=== PATIENT | female | born 1985 | race Caucasian/White ===

== ENCOUNTER 2024-04-23 21:50 | Observation (INO) | payer OTHER, SELFPAY ==
[2024-04-23 21:03] VITALS: BMI 45.8
--- NOTE | 2024-04-23 21:51 | HP.PCM.HOS_ITS ---
[facility] - General General Date of Admission: 04/23/24 Date of Service: 04/23/24 Chief Complaint: abdominal pain. HPI Narrative HERLINDA MOMIN, is a 39 F who presents with abdominal pain. 39-year-old female with history of hypertension presents with acute onsets of abdominal pain that began on the first. Went to outside emergency room where she had fairly unremarkable workup and actually was feeling better. Went home and had an ultrasound performed as outpatient. Ultrasound she had of her right upper quadrant showed findings consistent with cholecystitis/cholelithiasis. At some point afterwards, she had even more severe abdominal pain and presented to the emergency room at the outside hospital and her liver transaminases were elevated with AST of 345, ALT of 504 and alk phos of 160. Patient received pip-tazo as well as pain medication. They reached out to Dr. Benson, gastroenterology, who would see the patient in consultation with plan for an ERCP. Patient has never had any abdominal pain like this before. Patient is currently feeling much better at this time though still does have some abdominal pain. [facility] Medical History Hypertension Home Medications ?Medication ?Instructions ?Recorded ?Last Taken ?Type cholecalciferol (vitamin D3) 125 125 mcg PO DAILY supplement 04/23/24 Unknown History mcg (5,000 unit) tablet (Vitamin D3) ciprofloxacin HCl 500 mg tablet 500 mg PO BID atb 04/23/24 Unknown History diltiazem HCl 120 mg 120 mg PO DAILY heart 04/23/24 Unknown History capsule,extended release 24 hr losartan 100 mg tablet 100 mg PO DAILY bp 04/23/24 Unknown History metronidazole 500 mg tablet 500 mg PO TID atb 04/23/24 Unknown History ondansetron 4 mg disintegrating 4 mg PO Q6H PRN PRN nausea and 04/23/24 Unknown History tablet vomiting oxycodone 5 mg tablet 5 mg PO TID PRN PRN pain 04/23/24 Unknown History pravastatin 20 mg tablet 20 mg PO QPM hld 04/23/24 Unknown History Allergy/AdvReac Type Severity Reaction Status Date / Time No Known Allergies Allergy Verified 04/23/24 21:16 Family History no significant family his Surgical History no surgical history Social History (Updated 04/23/24 @ 21:[address] Vineet Jean DO) Smoking Status: Never smoker alcohol intake: current alcohol intake frequency: holidays/special occasions only substance use type: does not use ROS ROS Narrative Patient had some nausea with this event. All review of systems were negative except as mentioned above in the history of present illness and the other review of systems. Vital Signs Vital Signs Vital Signs: Weight Weight: 117.435 kg Body Mass Index (BMI) 45.8 Physical Exam Const alert and no apparent distress General Appearance: cooperative HEENT normocephalic and head/scalp atraumatic Eyes Eyes Narrative: No icterus Neck no lymphadenopathy Neck Narrative: No thyromegaly Resp normal respiratory effort, no retractions, no use of accessory muscles and clear to auscultation bilaterally Cardio regular rate, regular rhythm, S1 normal heart sound and S2 normal heart sound GI normal to inspection, nondistended, normoactive bowel sounds and soft to palpation GI Narrative: Slight right upper quadrant abdominal pain. No rebound. Extremity normal to inspection Neuro Sensorium / Orientation: awake and alert Psych affect normal Results Lab / Micro Data Attestation: I reviewed the patient's lab results. Lab results narrative: Outside labs showed a white count of 7.9, hemoglobin 14.8, platelets 372. CMP: Sodium 138, potassium 3.9, creatinine 0.62, AST 345, ALT 504, alk phos 160. Urinalysis was unremarkable. Imaging Outside ultrasound that was performed before the second biliary colic showed findings consistent with cholecystitis/cholelithiasis. Common bile duct mildly dilated measuring 6.1 mm. Intraductal calculus not identified. Gravel present in the dependent aspect of the gallbladder. Assessment & Plan Assessment/Plan (1) Cholecystitis: PLAN: Acute cholecystitis Patient received pip-tazo at the outside hospital. Will have her on ceftriaxone 2 g daily plus 3 times daily dosing of metronidazole. Clear liquid diet for now. N.p.o. after midnight. Discussed with Dr. Benson and the plan is for an ERCP on the third. Discussed with Dr. Milton who will see the patient in consultation. Patient will need to have her gallbladder removed at some point. Is unclear at this point time that will be done during this hospitalization or as outpatient. IV fluids. Pain control. Antiemetics. (2) Dilated bile duct: PLAN: Likely due to a passed gallstone though was not visualized on the ultrasound. Plans for an ERCP on the third. (3) Transaminitis: PLAN: Likely secondary to transient choledocholithiasis. Monitor for now. PLAN: Plan Chronic conditions * Hypertension: Patient takes diltiazem for her blood pressure. I verified that with her. She states that she does not have any history of any arrhythmia. Will continue with that but also continue with her losartan. * Hyperlipidemia: Given the transaminitis, will hold off on her pravastatin. * Obesity class III: Complicates care and recovery. VTE prophylaxis with SCDs anticipating ERCP and possible cholecystectomy during this hospitalization. CODE STATUS: Addressed with the patient. Patient wishes to be full code. Charges/Coding Visit Charges Inpatient E&M: 01631 Init Hosp L3
[2024-04-23] MEDS: 0.9% Normal Saline (1000mL) 1,000 ML 125 ML IV (22:48)
[2024-04-23] MEDS: metroNIDAZOLE 500 MG/100 ML BAG 100 MG IV (23:13)
[2024-04-23] MEDS: Ceftriaxone 2 GM in 0.9% Normal Saline (50mL MB+) 50 ML IV (23:13)
[2024-04-24] VITALS (10 sets, daily range): BP systolic 117–150; BP diastolic 68–96; PULSE 65–91; RESP 14–18; TEMP 36.5–36.9; O2SAT 96–100; BMI 45.8
--- NOTE | 2024-04-24 04:01 | NURSING ---
Radiology called to notify this nurse that the abdominal ultrasound for this patient will not merge onto patient's chart. It is currently in a mismatched profile and the hard copy is still with radiology if a provider were needing to see it.
[2024-04-24 04:20] LABS: Internal QC Validated? YES +Cl - CLEAR BKGD; Pregnancy, Urine Negative Negative
[2024-04-24] MEDS: metroNIDAZOLE 500 MG/100 ML BAG 100 MG IV ×2 (05:17→13:22)
[2024-04-24] MEDS: Acetaminophen 325 MG Tablet 650 MG PO ×2 (05:19→17:25)
[2024-04-24 05:35] LABS: Absolute Lymphocyte Count 1.73 X10^3/uL (0.83-4.51); Absolute Neutrophil Count 3.9 X10^3/uL (2.0-7.7); Basophil# 0.06 X10^3/uL; Eosinophil# 0.12 X10^3/uL; Eosinophils% 1.9 % (0-5); Hematocrit 34.6 % (37-47); Hemoglobin 11.5 g/dL (12.0-15.0); Lymphocyte # 1.73 X10^3/ul (0.83-4.51); Lymphocyte % 27.5 % (19-41); Mean Corp Hgb Conc 33.2 g/dL (32-36); Mean Corpuscular Hgb 29.6 pg (27.0-32.0); Mean Corpuscular Volume 89.2 fL (81-99); Monocyte# 0.47 X10^3/uL; Monocyte% 7.5 % (0-10); NRBC Flagged by Analyzer 0 % (0-5); Neutrophil # 3.89 X10^3/uL (2.7-7.7); Neutrophil % 61.6 % (47-70); Platelet Count 278 K/mm3 (150-450); RBC Distribution Width CV 13.3 % (11.6-14.6); RBC Distribution Width SD 43.2 fl (35.1-43.9); Red Blood Count 3.88 M/mm3 (4.2-5.4); White Blood Count 6.3 K/mm3 (4.4-11.0)
[2024-04-24 05:56] LABS: AST(SGOT) 231 U/L (15-37); Alanine Aminotransfer ALT/SGPT 404 U/L (13-56); Albumin, Serum 3.1 g/dL (3.2-5.0); Alkaline Phosphatase 165 U/L (45-117); Anion Gap 8 (5-15); BUN 9 mg/dL (7-18); BUN/Creat Ratio 19.7 RATIO (10-20); Calcium,Total 8.2 mg/dL (8.5-10.1); Chloride 108 mmol/L (98-107); Creatinine, Serum 0.46 mg/dL (0.55-1.02); EST Glomerular Filtration Rate 160 mL/min (>60); Est Glom Filt Rate - Afr Amer 193 mL/min (>60); Estimated Creatinine Clearance 199.23 ml/min; Globulin 3.1 g/dL (2.2-4.2); Glucose 87 mg/dL (74-106); Potassium 3.7 mmol/L (3.5-5.1); Protein, Total 6.2 g/dL (6.4-8.2); Sodium Level 139 mmol/L (136-145)
--- NOTE | 2024-04-24 06:00 | EKG12_ITS ---
Test Reason : PRE-OP Blood Pressure : / mmHG Vent. Rate : 074 BPM Atrial Rate : 074 BPM P-R Int : 182 ms QRS Dur : 098 ms QT Int : 412 ms P-R-T Axes : 051 017 057 degrees QTc Int : 457 ms Normal sinus rhythm Normal ECG No previous ECGs available Confirmed by Sher Gan ([id number]), proposal editor [facility] CANDELARIO ([id number]) on 04/27/2024 2:12:56 PM Referred By: YINA Confirmed By:Sher Gan
--- NOTE | 2024-04-24 06:54 | PCM.PN.HOSP ---
Reason for Visit Reason for Visit: Diagnoses Cholecystitis, unspecified (04/23/24) Other specified diseases of biliary tract (04/23/24) Elevation of levels of liver transaminase levels (04/23/24) Subjective Subjective Patient is a 39-year-old lady admitted with abdominal pain Objective Data Objective Data Vital Signs: Vital Signs Temp Pulse Resp BP Pulse Ox O2 Del Method 98.1 F 69 14 132/68 H 96 Room Air 04/24/24 02:57 04/24/24 02:57 04/24/24 02:57 04/24/24 02:57 04/24/24 02:57 04/24/24 02:57 Oxygen Delivery Method Room Air Weight: 117.435 kg Body Mass Index (BMI) 45.8 Intake & Output: Intake and Output for Last 24 Hours 04/22/24 04/23/24 04/24/24 23:59 23:59 23:59 Intake Total 168.75 / 168.75 200 / 200 Output Total 0 / 0 Balance 168.75 / 168.75 200 / 200 Lab / Micro Data 04/24/24 05:12 04/24/24 05:12 Labs: Laboratory Results - last 24 hr 04/24/24 03:06: Urine Test Negative 04/24/24 05:12: WBC 6.3, RBC 3.88 L, Hgb 11.5 L, Hct 34.6 L, MCV 89.2, MCH 29.6, MCHC 33.2, RDW Std Deviation 43.2, RDW Coeff of Stevo 13.3, Plt Count 278, MPV 11.0, Immature Gran % (Auto) 0.500, Neut % (Auto) 61.6, Lymph % (Auto) 27.5, [place] % (Auto) 7.5, Eos % (Auto) 1.9, Baso % (Auto) 1.0, Absolute Neuts (auto) 3.9, Absolute Lymphs (auto) 1.73, Nucleated RBC % 0, Sodium 139, Potassium 3.7, Chloride 108 H, Carbon Dioxide 23.0, Anion Gap 8, BUN 9, Creatinine 0.46 L, Estim Creat Clear Calc 199.23, Est GFR (MDRD) Af Amer 193, Est GFR (MDRD) Non-Af 160, BUN/Creatinine Ratio 19.7, Glucose 87, Calcium 8.2 L, Total Bilirubin 2.70 H, AST 231 H, ALT 404 H, Alkaline Phosphatase 165 H, Total Protein 6.2 L, Albumin 3.1 L, Globulin 3.1, Albumin/Globulin Ratio 1.0 Physical Exam Narrative GENERAL: cooperative HEENT: Atraumatic; normocephalic EYES; Anicteric, Normal Conjunctiva NECK; supple, normal thyroid, RESPIRATORY: Diminished to auscultation CARDIOVASCULAR: Regular S1 S2, GI: soft, normoactive bowel sounds, RUQ tenderness : No Renal angle tenderness; EXTREMITIES: No edema, no clubbing, MUSCULOSKELETAL: no muscle wasting NEURO: Awake; no lateralizing signs. SKIN: No Rash PSYCH; Flat affect Assessment & Plan Assessment/Plan (1) Cholecystitis: (2) Dilated bile duct: (3) Transaminitis: PLAN: Plan Patient is a 39-year-old lady admitted with abdominal pain 1. Acute cholecystitis ? Patient admitted to regular nursing floor treatment initiated with ceftriaxone and metronidazole with consultation placed to general surgery and GI 2. Dilated bile duct ? GI is on board plan is for ERCP 3. Hypertension - Blood pressure controlled, home medications continued with dose adjustment as needed 4. Dyslipidemia ? Patient is on provide started which is currently being held given his elevated liver enzymes 5. Class III obesity with BMI of 45.9 ? Weight loss advised 6. DVT prophylaxis - On enoxaparin Time spent in the patient's overall evaluation,decision-making process, review of diagnostic data, adjustment of management, discussion with other providers, nursing nursing and ancillary staff involved in patient's care documentation, 36 Minutes Charges/Coding Visit Charges Inpatient E&M: 75726 Subs Hosp L2
[2024-04-24] MEDS: dilTIAZem CD 120 MG Capsule PO (08:20)
--- NOTE | 2024-04-24 08:47 | CON.PCM.SX_ITS ---
Assessment & Plan Assessment/Plan (1) Cholelithiasis: (2) Elevated LFTs: PLAN: Plan Patient will undergo an ERCP today with Dr. Benson. Would likely plan for laparoscopic cholecystectomy on Friday as patient's pain is well-controlled currently. Would recommend only clear liquids after ERCP to avoid fatty foods. Reviewed the anatomy with the patient and discussed the procedure: laparoscopic cholecystectomy with possible cholangiograms, possible open. Review risks including but not limited to bleeding, infection, hernia, bile leak, retained gallstones requiring another procedure ERCP- Endoscopic Retrograde Cholangiopancreatography, injury to another organ (bile ducts, common bile duct, small bowel, etc.) and conversion to an open procedure. All questions were answered. France Milton M.D. Pager: [phone] [facility] [address] [place] [address], [address] [place] [address] Office: [phone] HPI Consult Data Date of Consult: 04/24/24 HPI Narrative Reason for Consultation: Cholelithiasis, cholecystitis HPI Narrative: HERLINDA MOMIN, is a 39 F who admitted due to elevated LFTs and cholelithiasis from [facility]. Patient states her pain started on after eating some sloppy Torsten's that did improve until Friday she had her ultrasound but then had a salad with salad dressing patient went to see her PCP and her pain got worse and she went to the ER. Currently patient denies much pain states it may be is a 1 out of 10 currently. Patient denies any nausea or vomiting currently. Patient's LFTs have trended up a little bit plan for an ERCP today with Dr. Benson. Reviewed the CT images however do not have the images from the ultrasound as a send images from 2007 --asked for them to be resent. [facility] Medical History (Updated 04/24/24 @ 08:[address] France Milton MD) Hypertension Home Medications ?Medication ?Instructions ?Recorded ?Last Taken ?Type cholecalciferol (vitamin D3) 125 125 mcg PO DAILY supplement 04/23/24 Unknown History mcg (5,000 unit) tablet (Vitamin D3) ciprofloxacin HCl 500 mg tablet 500 mg PO BID atb 04/23/24 Unknown History diltiazem HCl 120 mg 120 mg PO DAILY heart 04/23/24 Unknown History capsule,extended release 24 hr losartan 100 mg tablet 100 mg PO DAILY bp 04/23/24 Unknown History metronidazole 500 mg tablet 500 mg PO TID atb 04/23/24 Unknown History ondansetron 4 mg disintegrating 4 mg PO Q6H PRN PRN nausea and 04/23/24 Unknown History tablet vomiting oxycodone 5 mg tablet 5 mg PO TID PRN PRN pain 04/23/24 Unknown History pravastatin 20 mg tablet 20 mg PO QPM hld 04/23/24 Unknown History Allergy/AdvReac Type Severity Reaction Status Date / Time No Known Allergies Allergy Verified 04/23/24 21:16 Family History no significant family his Surgical History (Updated 04/24/24 @ 08:[address] France Milton MD) H/O: Surgical History no surgical history Social History (Updated 04/23/24 @ 21:[address] Vineet Jean DO) Smoking Status: Never smoker alcohol intake: current alcohol intake frequency: holidays/special occasions only substance use type: does not use ROS Constitutional Constitutional: Denies fever(s) Eyes Eyes: Denies loss of central vision ENT HEENT: Denies dysphagia Cardiovascular Cardiovascular: Denies chest pain Respiratory/Chest Respiratory/Chest: Denies productive cough Gastrointestinal Gastrointestinal: Reports abdominal pain; Denies vomiting Genitourinary Genitourinary: Denies dysuria Musculoskeletal Musculoskeletal: Denies joint swelling Integumentary Integumentary: Denies jaundice Neurologic Neurologic: Denies focal weakness Psychiatric Psychiatric: Denies anxiety or depression Endocrine Endocrinology: Denies palpitations Hematologic/Lymphatic Hematologic/Lymphatic: Denies easy bleeding Physical Exam Const alert, oriented x3 and no apparent distress HEENT normocephalic and head/scalp atraumatic Resp normal respiratory effort Cardio regular rate GI soft to palpation; Negative for non-distended Palpation: tender epigastric and RUQ (mild); Negative for guarding Extremity no clubbing, cyanosis or edema Skin no rashes or lesions noted Neuro CN's II-XII intact bilaterally Psych mental status grossly normal Lab / Micro Data 04/24/24 05:12 04/24/24 05:12 Labs: Laboratory Results - last 24 hr 04/24/24 03:06: Urine Test Negative 04/24/24 05:12: WBC 6.3, RBC 3.88 L, Hgb 11.5 L, Hct 34.6 L, MCV 89.2, MCH 29.6, MCHC 33.2, RDW Std Deviation 43.2, RDW Coeff of Stevo 13.3, Plt Count 278, MPV 11.0, Immature Gran % (Auto) 0.500, Neut % (Auto) 61.6, Lymph % (Auto) 27.5, [place] % (Auto) 7.5, Eos % (Auto) 1.9, Baso % (Auto) 1.0, Absolute Neuts (auto) 3.9, Absolute Lymphs (auto) 1.73, Nucleated RBC % 0, Sodium 139, Potassium 3.7, Chloride 108 H, Carbon Dioxide 23.0, Anion Gap 8, BUN 9, Creatinine 0.46 L, Estim Creat Clear Calc 199.23, Est GFR (MDRD) Af Amer 193, Est GFR (MDRD) Non-Af 160, BUN/Creatinine Ratio 19.7, Glucose 87, Calcium 8.2 L, Total Bilirubin 2.70 H, AST 231 H, ALT 404 H, Alkaline Phosphatase 165 H, Total Protein 6.2 L, A lbumin 3.1 L, Globulin 3.1, Albumin/Globulin Ratio 1.0 Charges/Coding Visit Charges Inpatient E&M: 16491 Init Hosp L3
[2024-04-24] MEDS: 0.9% Normal Saline (1000mL) 1,000 ML 125 ML IV ×2 (10:37→14:46)
--- NOTE | 2024-04-24 11:25 | CON.PCM.GI_ITS ---
HPI Consult Data Date of Consult: 04/24/24 HPI Narrative Reason for Consultation: Choledocholithiasis HPI Narrative: HERLINDA MOMIN, is a 39-year-old female with history of hypertension presented to the [facility] with acute onsets of abdominal pain. It had been going on for about 3 days. Initially she went to outside emergency room where she had fairly unremarkable workup and actually was feeling better. She then went home and had an ultrasound performed as outpatient. Ultrasound she had of her right upper quadrant showed findings consistent with cholecystitis/cholelithiasis. Later that evening she developed severe abdominal pain and presented to the emergency room at the outside hospital and her liver transaminases were elevated with AST of 345, ALT of 504 and alk phos of 160. She was given pip-tazo as well as pain medication. I was called for a transfer to our institution for ERCP. Currently her LFTs are still increasing and now she is visibly jaundiced. She does have some right upper quadrant pain but is controlled with IV medicines. [facility] Medical History (Updated 04/24/24 @ 08:[address] France Milton MD) Hypertension Home Medications ?Medication ?Instructions ?Recorded ?Last Taken ?Type cholecalciferol (vitamin D3) 125 125 mcg PO DAILY supplement 04/23/24 Unknown History mcg (5,000 unit) tablet (Vitamin D3) ciprofloxacin HCl 500 mg tablet 500 mg PO BID atb 04/23/24 Unknown History diltiazem HCl 120 mg 120 mg PO DAILY heart 04/23/24 Unknown History capsule,extended release 24 hr losartan 100 mg tablet 100 mg PO DAILY bp 04/23/24 Unknown History metronidazole 500 mg tablet 500 mg PO TID atb 04/23/24 Unknown History ondansetron 4 mg disintegrating 4 mg PO Q6H PRN PRN nausea and 04/23/24 Unknown History tablet vomiting oxycodone 5 mg tablet 5 mg PO TID PRN PRN pain 04/23/24 Unknown History pravastatin 20 mg tablet 20 mg PO QPM hld 04/23/24 Unknown History Allergy/AdvReac Type Severity Reaction Status Date / Time No Known Allergies Allergy Verified 04/23/24 21:16 Family History no significant family his Surgical History (Updated 04/24/24 @ 08:[address] France Milton MD) H/O: Surgical History no surgical history Social History (Updated 04/23/24 @ 21:[address] Vineet Jean, DO) Smoking Status: Never smoker alcohol intake: current alcohol intake frequency: holidays/special occasions only substance use type: does not use ROS Constitutional Constitutional: Denies fever(s) Eyes Eyes: Denies loss of central vision ENT HEENT: Denies dysphagia Cardiovascular Cardiovascular: Denies chest pain Respiratory/Chest Respiratory/Chest: Denies productive cough Gastrointestinal Gastrointestinal: Reports abdominal pain; Denies vomiting Genitourinary Genitourinary: Denies dysuria Musculoskeletal Musculoskeletal: Denies joint swelling Integumentary Integumentary: Denies jaundice Neurologic Neurologic: Denies focal weakness Psychiatric Psychiatric: Denies anxiety or depression Endocrine Endocrinology: Denies palpitations Hematologic/Lymphatic Hematologic/Lymphatic: Denies easy bleeding Physical Exam Const alert, oriented x3 and no apparent distress HEENT normocephalic and head/scalp atraumatic Resp normal respiratory effort Cardio regular rate GI soft to palpation; Negative for non-distended Palpation: tender epigastric and RUQ (mild); Negative for guarding Extremity no clubbing, cyanosis or edema Skin no rashes or lesions noted Neuro CN's II-XII intact bilaterally Psych mental status grossly normal Lab / Micro Data 04/24/24 05:12 04/24/24 05:12 Labs: Laboratory Results - last 24 hr 04/24/24 03:06: Urine Test Negative 04/24/24 05:12: WBC 6.3, RBC 3.88 L, Hgb 11.5 L, Hct 34.6 L, MCV 89.2, MCH 29.6, MCHC 33.2, RDW Std Deviation 43.2, RDW Coeff of Stevo 13.3, Plt Count 278, MPV 11.0, Immature Gran % (Auto) 0.500, Neut % (Auto) 61.6, Lymph % (Auto) 27.5, [place] % (Auto) 7.5, Eos % (Auto) 1.9, Baso % (Auto) 1.0, Absolute Neuts (auto) 3.9, Absolute Lymphs (auto) 1.73, Nucleated RBC % 0, Sodium 139, Potassium 3.7, Chloride 108 H, Carbon Dioxide 23.0, Anion Gap 8, BUN 9, Creatinine 0.46 L, Estim Creat Clear Calc 199.23, Est GFR (MDRD) Af Amer 193, Est GFR (MDRD) Non-Af 160, BUN/Creatinine Ratio 19.7, Glucose 87, Calcium 8.2 L, Total Bilirubin 2.70 H, AST 231 H, ALT 404 H, Alkaline Phosphatase 165 H, Total Protein 6.2 L, A lbumin 3.1 L, Globulin 3.1, Albumin/Globulin Ratio 1.0 Assessment & Plan Assessment/Plan (1) Cholecystitis: PLAN: 39-year-old with acute right upper quadrant pain and discovered to have acute cholecystitis with common bile duct obstruction Patient received pip-tazo at the outside hospital. She was started on ceftriaxone 2 g daily plus 3 times daily dosing of metronidazole. Continue n.p.o. the plan is for ERCP. She will be evaluated by surgery. (2) Dilated bile duct: PLAN: Likely secondary to underlying choledocholithiasis since her LFTs are increasing as she still has pain. (3) Transaminitis: PLAN: Secondary to biliary obstruction.. Charges/Coding Visit Charges Inpatient E&M: 74596 Init Hosp L3
--- NOTE | 2024-04-24 11:27 | RAD_ITS ---
EXAM: FL FLUOROSCOPY < 1 HOUR CLINICAL INDICATION: ABD PAIN TECHNIQUE: Fluoroscopic images performed in multiple projections. Fluoroscopic guidance was provided by a physician. Fluoroscopic dose is 75.28mGy and fluoroscopic time is 1 minute 33 seconds. COMPARISON: No relevant prior studies available. FINDINGS AND RAD/ERCP Biliary/Pancreas IMPRESSION: 5 fluoroscopic images for ERCP are submitted to the medical record. Refer to the operative notes for complete details. Electronically Signed: Tomasz Watkins DO at 16:30 EDT ,
--- NOTE | 2024-04-24 11:48 | PCM.PRE.AN2 ---
ASA Classification* ASA Classification ASA Classification: 3 and E Assessment & Plan Anesthesia* Anesthesia Assessment Anesthesia Assessment: Discussed sedation and/or anesthesia options, risks, benefits, and alternatives with patient/parents/legal guardian/POA. Questions invited. The patient/parents/legal guardian/POA seems to understand and agrees to proceed with anesthesia plan. Reviewed the physical assessment, medical history, allergy history and patient home medications list prior to surgery/procedure/anesthetic and documented any changes. Performed airway and anesthesia risk assessments. Anesthesia Type Anesthesia Type: General (see written pre anesthesia record for full assessment) Anesthesia Focused Assessment* Temperature: 98.0 F Pulse Rate: 73 Blood Pressure: 145/96 Respiratory Rate: 18 Pulse Ox: 99 Airway Assessment Mouth opens: >3 cm Mallampati Score: II Focused Labs Anesthesia Preop lab: CBC WBC 6.3 K/mm3 (4.4-11.0) 04/24/24 05:12 RBC 3.88 M/mm3 (4.2-5.4) L 04/24/24 05:12 Hgb 11.5 g/dL (12.0-15.0) L 04/24/24 05:12 Hct 34.6 % (37-47) L 04/24/24 05:12 Plt Count 278 K/mm3 (150-450) 04/24/24 05:12 CHEMISTRY Potassium 3.7 mmol/L (3.5-5.1) 04/24/24 05:12 Sodium 139 mmol/L (136-145) 04/24/24 05:12 BUN 9 mg/dL (7-18) 04/24/24 05:12 Creatinine 0.46 mg/dL (0.55-1.02) L 04/24/24 05:12 Glucose 87 mg/dL (74-106) 04/24/24 05:12 COAG Urine Test Negative Negative 04/24/24 03:06 Pre-Assessment Diagnosis/Proposed Procedure Planned Operative Procedure(s): ercp Anesthesia History Anesthesia History - mica laminating machine feeder: Anesthesia History - mica laminating machine feeder Hx Hospitalization Any Problems With Anesthesia No 04/23/24 21:09 Cholinesterase deficiency No 04/23/24 21:09 You/Your Family Experience No 04/23/24 21:09 fever (hyperthermia) with Relationship Recent Exposure to Contagious No 04/23/24 21:09 Disease Does patient have nerve No 04/23/24 21:09 stimulator Patient instructed to have No 04/23/24 21:09 device shut off --Does patient have Pacemaker No 04/24/24 11:06 or ICD? When Was Last Pacemaker Check QUESTION #4 FULL TEXT: You/Your Family Experience fever (hyperthermia) with Anesthesia Last Oral Intake Last Oral intake: Last Oral Intake NPO since 00:00 04/24/24 11:06 Meds taken in AM with sips of Yes 04/24/24 11:06 water? Meds patient instructed to cardizem @ approx 0800 04/24/24 11:06 take am of surgery other b/p meds held-see mar PONV PONV - mica laminating machine feeder: PONV - mica laminating machine feeder Female HX of Motion Sickness HX of N/V After Surgery Non-Smoker Duration of Surgery greater than 60 minutes Number of Risk Factors PONV Score Height & Weight Height & Weight: Anesthesia: Height & Weight Height 5 ft 2.99 in 04/24/24 11:06 Weight: 117.43 kg 04/24/24 11:06 Body Mass Index (BMI) 45.8 04/24/24 11:06 Respiratory Assessment Respiratory Assessment - mica laminating machine feeder: Respiratory Tract Infection Hx - mica laminating machine feeder Hx Respiratory Tract Infection No 04/23/24 21:09 STOP Sleep Apnea STOP Sleep Apnea - mica laminating machine feeder: STOP Sleep Apnea - mica laminating machine feeder Hx Hypertension Yes 04/23/24 21:03 Hx Sleep Apnea No 04/23/24 21:03 CPAP BIPAP Do you snore loudly (louder No 04/23/24 21:03 than talking or can be heard Do you often feel tired/ No 04/23/24 21:03 fatigued/ sleepy during daytime? Has anyone observed you stop No 04/23/24 21:03 breathing during sleep? STOP Results Negative 04/23/24 21:03 QUESTION #5 FULL TEXT : Do you snore loudly (louder than talking or can be heard through closed doors)? 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 Specify any problems Hx of Preganancy in last 3 No 04/23/24 21:03 Months Nurse Filling Out Transfusion VWEEMAN 04/23/24 21:03 & Questions: Date: 04/23/24 04/23/24 21:03 Time: 21:09 04/23/24 21:03 Patient unable to answer at this time (ie. confused, unrespo /Reproduction History /Reproductive History - mica laminating machine feeder: /Reproductive Hx- mica laminating machine feeder Hx Now No 04/23/24 21:09 Gestational Age (in weeks): EDC: Hx Hx Para Hx Section SAB No 04/23/24 21:09 Active Medications Active Medications: Current Medications Generic Name Dose Route Start Last Admin Trade Name Freq PRN Reason Stop Dose Admin Acetaminophen 650 mg 04/23/24 22:30 04/24/24 05:19 Acetaminophen 325 Mg Tablet PO 650 mg Q6H PRN PRN Administration Pain 1-10 Or Fever >100.7 Diltiazem HCl 120 mg 04/24/24 10:00 04/24/24 08:20 Diltiazem Cd 120 Mg Capsule PO 120 mg DAILY JULIAN Administration Protocol Heparin Sodium (Porcine) 5,000 unit 04/24/24 10:00 04/24/24 10:39 Heparin Injection (Vial) 5,000 Unit/Ml Vial SC Not Given Q12 JULIAN Sodium Chloride 250 mls @ 15 mls/hr 04/23/24 21:03 IV .[id number] PRN Additional IVPB Infusion Sodium Chloride 250 mls @ 15 mls/hr 04/23/24 21:03 IV .[id number] PRN Saline Flush Sodium Chloride 1,000 mls @ 125 mls/hr 04/23/24 22:30 04/24/24 10:37 IV 125 mls/hr .Q8H JULIAN Administration Ceftriaxone Sodium 2 gm/ 50 mls @ 100 mls/hr 04/23/24 22:30 04/23/24 23:43 Sodium Chloride IV Infused 2200 JULIAN Infusion Metronidazole 500 mg in 100 mls @ 100 mls/hr 04/23/24 22:30 04/24/24 06:36 Flagyl IV Infused Q8 JULIAN Infusion Losartan Potassium 100 mg 04/24/24 10:00 Losartan Potassium 100 Mg Tablet PO DAILY [facility] Protocol Morphine Sulfate 2 - 4 mg 04/23/24 22:30 Morphine 2 Mg/Ml Syringe IV Q3H PRN PRN Pain Score 6-10 Morphine Sulfate 2 - 4 mg 04/23/24 22:48 Morphine 4 Mg/Ml Syringe IV Q3H PRN PRN Pain Score 6-10 Ondansetron HCl 4 mg 04/23/24 22:30 Ondansetron 4 Mg/2 Ml Vial IV Q8H PRN PRN NAUSEA/VOMITING Oxycodone HCl 5 mg 04/23/24 22:30 Oxycodone 5 Mg Tablet PO Q4H PRN PRN Pain Score 4-10 Prochlorperazine Edisylate 5 mg 04/23/24 22:30 Prochlorperazine 10 Mg/2 Ml Vial IV Q4H PRN PRN Breakthrough nausea/vomiting Sodium Chloride 10 - 40 ml 04/23/24 21:03 0.9% Saline Lock 10 Ml Syringe IV UD PRN SALINE FLUSH PFSH Medical History Hypertension Home Medications ?Medication ?Instructions ?Recorded ?Last Taken ?Type cholecalciferol (vitamin D3) 125 125 mcg PO DAILY supplement 04/23/24 Unknown History mcg (5,000 unit) tablet (Vitamin D3) ciprofloxacin HCl 500 mg tablet 500 mg PO BID atb 04/23/24 Unknown History diltiazem HCl 120 mg 120 mg PO DAILY heart 04/23/24 Unknown History capsule,extended release 24 hr losartan 100 mg tablet 100 mg PO DAILY bp 04/23/24 Unknown History metronidazole 500 mg tablet 500 mg PO TID atb 04/23/24 Unknown History ondansetron 4 mg disintegrating 4 mg PO Q6H PRN PRN nausea and 04/23/24 Unknown History tablet vomiting oxycodone 5 mg tablet 5 mg PO TID PRN PRN pain 04/23/24 Unknown History pravastatin 20 mg tablet 20 mg PO QPM hld 04/23/24 Unknown History Allergy/AdvReac Type Severity Reaction Status Date / Time No Known Allergies Allergy Verified 04/23/24 21:16 Family History no significant family his Surgical History H/O: Surgical History no surgical history Social History Smoking Status: Never smoker alcohol intake: current alcohol intake frequency: holidays/special occasions only substance use type: does not use Review of Systems (Anesthesia) ROS Narrative System reviewed and no additional complaints, except as documented.
--- NOTE | 2024-04-24 12:06 | NURSING ---
cliff sent w/pt to [facility]
--- NOTE | 2024-04-24 13:47 | OP.CCLET_ITS ---
04/24/2024 Lukasz Webber Re : ERCP procedure for Alexandra Brothers Akbar This procedure was performed on Wednesday, April 24, 2024. My impressions and recommendations are as follows: Impressions : - The entire main bile duct was dilated, with a stone causing an obstruction. - Choledocholithiasis was found. Complete removal was accomplished by biliary sphincterotomy and balloon extraction. - A pancreatic sphincterotomy was performed. - The ventral pancreatic duct was swept and nothing was found. - A biliary sphincterotomy was performed. - The biliary tree was swept. - The lower third of the main bile duct was successfully dilated. - One temporary stent was placed into the common bile duct. Recommendations : LR wide open x 3 liters, then 200ml/hr. Continue antibiotics, Full loiquid diet and advance as tolerated to low fat diet My findings are described in the full procedure note, which is enclosed. If I can be of further assistance, please feel free to contact me at . Sincerely, Wellington Benson, 04/24/2024 1:46:01 PM This report has been signed electronically.
--- NOTE | 2024-04-24 13:47 | OP.ERCP_ITS ---
Patient Name: Alexandra Perkins Procedure Date: 04/24/2024 12:40 PM Date of : 1985 Age: 39 Procedure: ERCP Indications: Bile duct stone(s), Jaundice, Elevated liver enzymes Providers: Wellington Benson DO Medicines: Monitored Anesthesia Care Patient Profile: This is a 39 year old female. Refer to note in patient chart for documentation of history and physical. Patient has symptoms of acute right upper quadrant abdominal pain and acute jaundice. This patient has no history of previous ERCP. This patient has no history of surgical alteration of the upper digestive tract anatomy. Complications: No immediate complications. Procedure: Pre-Anesthesia Assessment: - Prior to the procedure, a History and Physical was performed, and patient medications and allergies were reviewed. The patient is competent. The risks and benefits of the procedure and the sedation options and risks were discussed with the patient. All questions were answered and informed consent was obtained. Patient identification and proposed procedure were verified by the physician in the pre-procedure area. Mental Status Examination: alert and oriented. Airway Examination: normal oropharyngeal airway and neck mobility. Respiratory Examination: clear to auscultation. CV Examination: normal. Prophylactic Antibiotics: The patient does not require prophylactic antibiotics. Prior Anticoagulants: The patient has taken no anticoagulant or antiplatelet agents except for NSAID medication. ASA Grade Assessment: II - A patient with mild systemic disease. After reviewing the risks and benefits, the patient was deemed in satisfactory condition to undergo the procedure. The anesthesia plan was to use general anesthesia. Immediately prior to administration of medications, the patient was re-assessed for adequacy to receive sedatives. The heart rate, respiratory rate, oxygen saturations, blood pressure, adequacy of pulmonary ventilation, and response to care were monitored throughout the procedure. The physical status of the patient was re-assessed after the procedure. After obtaining informed consent, the scope was passed under direct vision. Throughout the procedure, the patient's blood pressure, pulse, and oxygen saturations were monitored continuously. The Duodenoscope was introduced through the mouth, and advanced to the duodenum and used to inject contrast into the bile duct and ventral pancreatic duct. The ERCP was accomplished without difficulty. The patient tolerated the procedure well. Scope In: 1:22:52 PM Scope Out: 1:37:05 PM Total Procedure Duration Time 0 hours 14 minutes 13 seconds Findings: The oil scout film was normal. The esophagus was successfully intubated under direct vision. The scope was advanced to a normal major papilla in the descending duodenum without detailed examination of the pharynx, larynx and associated structures, and upper GI tract. The upper GI tract was grossly normal. A long 0.025 inch Jagwire was passed into the ventral pancreatic duct. The ventral pancreatic duct was then deeply cannulated with the short-nosed traction sphincterotome. Contrast was injected. I personally interpreted the pancreatic duct images. There was brisk flow of contrast through the ducts. Image quality was adequate. Contrast extended to the pancreatic duct. Opacification of the entire pancreatic ductal system was successful. The maximum diameter of the ducts was 2 mm. The entire opacified area was normal. Ventral pancreatic sphincterotomy was made with a traction (standard) sphincterotome using ERBE electrocautery. There was no post-sphincterotomy bleeding. To find object(s) the ventral pancreatic duct was swept with a 6 mm balloon starting at the pancreatic duct in the body of the pancreas. Nothing was found. A long 0.025 inch Jagwire was passed into the biliary tree. The short-nosed traction sphincterotome was passed over the guidewire and the bile duct was then deeply cannulated. Contrast was injected. Opacification of the main bile duct was successful. The maximum diameter of the ducts was 8 mm. The lower third of the main bile duct, cystic duct and gallbladder contained three stones, the largest of which was 4 mm in diameter. The main bile duct was diffusely dilated, with a stone causing an obstruction. The largest diameter was 8 mm. A 5 mm biliary sphincterotomy was made with a traction (standard) sphincterotome using ERBE electrocautery. There was no post-sphincterotomy bleeding. The biliary tree was swept with a 12 mm balloon starting at the bifurcation. Sludge was swept from the duct. All stones were removed. Dilation of the lower third of the main bile duct with a 10-11-12 mm balloon (to a maximum balloon size of 12 mm) dilator was successful. One 10 Fr by 5 cm temporary stent was placed 5 cm into the common bile duct. Bile flowed through the stent. The stent was in good position. Impression: - The entire main bile duct was dilated, with a stone causing an obstruction. - Choledocholithiasis was found. Complete removal was accomplished by biliary sphincterotomy and balloon extraction. - A pancreatic sphincterotomy was performed. - The ventral pancreatic duct was swept and nothing was found. - A biliary sphincterotomy was performed. - The biliary tree was swept. - The lower third of the main bile duct was successfully dilated. - One temporary stent was placed into the common bile duct. Recommendation: LR wide open x 3 liters, then 200ml/hr. Continue antibiotics, Full loiquid diet and advance as tolerated to low fat diet Procedure Code(s): --- Professional --- 35941, Endoscopic retrograde cholangiopancreatography (ERCP); with placement of endoscopic stent into biliary or pancreatic duct, including pre- and post-dilation and guide wire passage, when performed, including sphincterotomy, when performed, each stent [id number], 51, Endoscopic retrograde cholangiopancreatography (ERCP); with removal of calculi/debris from biliary/pancreatic duct(s) 40202, 59, Endoscopic retrograde cholangiopancreatography (ERCP); with sphincterotomy/papillotomy 50610, 26, Endoscopic catheterization of the pancreatic ductal system, radiological supervision and interpretation CPT copyright 2021 [employer]. All rights reserved. The codes documented in this report are preliminary and upon invoice coder review may be revised to meet current compliance requirements. Wellington Benson DO 04/24/2024 1:46:01 PM This report has been signed electronically. Number of Addenda: 0 Note Initiated On: 04/24/2024 12:40 PM
--- NOTE | 2024-04-24 13:52 | PCM.POST.ANE ---
Anesthesia: Postop Eval I Current Vital Signs Temperature: 98.5 F Pulse Rate: 91 Blood Pressure: 117/71 Respiratory Rate: 14 Pulse Ox: 97 Assessment Airway patent: Yes Spontaneous unlabored respirations: Yes nausea: No Vomiting: No Anesthesia Complication: No Fluid Hydration Crystalloid volume administer (ml): 1 Total IV fluid infused: 1 Progress Note Anesthesia document: Postop Eval 1 completed: Yes
[2024-04-24] MEDS: Lactated Ringers 1,000 ML 999 ML IV ×2 (13:55→14:37)
--- NOTE | 2024-04-24 13:55 | PCM.POSTANE2 ---
Anesthesia Postop Eval I Sum Postop Eval Completion status Anesthesia document: Postop Eval 1 completed: Yes Anesthesia Postop Eval I Summary Anesthesia Postop Eval I Summary: Anesthesia Postop Eval I: Assessment Summary Airway patent Yes 04/24/24 13:52 Spontaneous unlabored Yes 04/24/24 13:52 respirations Mental status nausea No 04/24/24 13:52 Vomiting No 04/24/24 13:52 Anesthesia Postop Eval I: Fluid Summary Crystalloid volume administer 1 04/24/24 13:52 (ml) Colloids volume administered ( ml) Blood Product volume administered (ml) Total IV fluid infused 1 04/24/24 13:52 Anesthesia Postop Eval I: Summary Notes Anesthesia Complication No 04/24/24 13:52 Anesthesia Complication Comment: Post-operative progress note Anesthesia: Postop Eval II Evaluation Mental status: Awake Pain Level: 0 nausea: No Vomiting: No
[2024-04-24] MEDS: Ondansetron 4 MG/2 ML Vial IV (14:37)
[2024-04-24] MEDS: Lactated Ringers 1,000 ML 500 ML IV (14:47)
[2024-04-24] MEDS: Metoclopramide 10 MG/2 ML Vial 5 MG IV (14:47)
--- NOTE | 2024-04-24 15:15 | CASEMGMT ---
RN CM Face to Face with patient for initial transition planning/care coordination assessment. RN CM introduced self and role at [facility]. Patient lying in bed, alert and oriented. Patient willing to participate in assessment and is able to answer all questions appropriately. Care providers, pharmacy, and demographics verified. Lace: 1 Strata: 1 PCP: Wes Specialists: venice JIMENEZ; [facility]erred Pharmacy:[facility] Insurance: [employer] Prescription Benefit:yes Living Will/HPOA: none LNOK: Living Arrangements: Patient lives with in a single story home with no steps to enter. Patient is independent at home. Transportation: Patient denies DME in the home. DME/HHC: No previous HHC or SNF Patient wishes to discharge home, denies need for home health at this time. Patient states he has no further needs or concerns at this time. CM to follow for discharge planning needs that may arise. Disposition Plan: Patient to discharge home with family support and follow-up plans in place. Dacia PETE, RN, CM
[2024-04-24] MEDS: Losartan Potassium 100 MG Tablet PO (17:25)
--- NOTE | 2024-04-24 17:49 | DCINST_ITS ---
Discharge Instructions Diet Discharge Diet: Soft diet and No Fluid Restriction Activity Discharge Activity: Return to Normal Activity Dressing / Incision Call your doctor if you observe: Fever of 101 or Higher, Shortness of breath, Fainting spells and Chest pain Follow Up Care Test Results: Test results from this visit will be discussed in further detail at your follow- up appointment, if applicable. Discharge Plan Admission Admit Date/Time: 04/23/24 21:50 Attending Provider: Antoine Foss Primary Care Provider: Jasson Harvey Consulting Providers: [place] Milton; Vineet Jean Discharge Orders/Prescriptions Prescriptions: No Action metronidazole 500 mg tablet 500 mg PO TID ciprofloxacin HCl 500 mg tablet 500 mg PO BID diltiazem HCl 120 mg capsule,extended release 24hr 120 mg PO DAILY ondansetron 4 mg tablet,disintegrating 4 mg PO Q6H PRN PRN (Reason: nausea and vomiting) losartan 100 mg tablet 100 mg PO DAILY cholecalciferol (vitamin D3) [Vitamin D3] 125 mcg (5,000 unit) tablet 125 mcg PO DAILY oxycodone 5 mg tablet 5 mg PO TID PRN PRN (Reason: pain) pravastatin 20 mg tablet 20 mg PO QPM Referrals / Follow Up: Jasson Harvey MD [Primary Care Provider] - Within 1 Week Disposition Disposition (needs filled in before D/C Order can be placed): Home, Self Care
--- NOTE | 2024-04-24 17:51 | PCM.DC.SUM ---
Providers Date of Admission: 04/23/24 Date of Discharge: 04/24/24 Primary Care Physician: Dr. Jasson Harvey MD Consultations 04/23/24 22:30 Consult: Gastroenterology Routine Consulting Provider: [facility] Reason for Consult: choledocholithiasis EMERGENT Consult: No Notified: Yes Date Notified: 04/23/24 Time Notified: 21:49 Method of Notification: Verbal Consult: General Surgery Routine Consulting Provider: France Milton Reason for Consult: cholecystitis EMERGENT Consult: No Notified: Yes Date Notified: 04/23/24 Time Notified: 21:49 Method of Notification: Verbal Reason For Visit: CHOLECYSTITIS Diagnosis Discharge Diagnosis (1) Cholecystitis: Status: Acute Code(s): K81.9 - Cholecystitis, unspecified (2) Dilated bile duct: Status: Acute Code(s): K83.8 - Other specified diseases of biliary tract (3) Transaminitis: Status: Acute Code(s): R74.01 - Elevation of levels of liver transaminase levels Plan Patient is a 39-year-old lady admitted with abdominal pain 1. Acute cholecystitis ? Patient admitted to regular nursing floor treatment initiated with ceftriaxone and metronidazole with consultation placed to general surgery and GI. ? Patient underwent ERCP on 04/24/2024. Findings and recommendations as below Impressions : - The entire main bile duct was dilated, with a stone causing an obstruction. - Choledocholithiasis was found. Complete removal was accomplished by biliary sphincterotomy and balloon extraction. - A pancreatic sphincterotomy was performed. - The ventral pancreatic duct was swept and nothing was found. - A biliary sphincterotomy was performed. - The biliary tree was swept. - The lower third of the main bile duct was successfully dilated. - One temporary stent was placed into the common bile duct. Plan was for patient to undergo an cholecystectomy patient however requested to be discharged to follow-up with [facility] for the procedure 2. Dilated bile duct ? GI is on board plan is for ERCP 3. Hypertension - Blood pressure controlled, home medications continued with dose adjustment as needed 4. Dyslipidemia ? Patient is on provide started which is currently being held given his elevated liver enzymes 5. Class III obesity with BMI of 45.9 ? Weight loss advised 6. DVT prophylaxis - On enoxaparin Time spent in the patient's overall evaluation,decision-making process, review of diagnostic data, adjustment of management, discussion with other providers, nursing nursing and ancillary staff involved in patient's care documentation, 36 Minutes Medications at Discharge Home Medications cholecalciferol (vitamin D3) 125 mcg (5,000 unit) tablet (Vitamin D3) 125 mcg PO DAILY supplement 04/23/24 ciprofloxacin HCl 500 mg tablet 500 mg PO BID atb 04/23/24 diltiazem HCl 120 mg capsule,extended release 24 hr 120 mg PO DAILY heart 04/23/24 losartan 100 mg tablet 100 mg PO DAILY bp 04/23/24 metronidazole 500 mg tablet 500 mg PO TID atb 04/23/24 ondansetron 4 mg disintegrating tablet 4 mg PO Q6H PRN PRN nausea and vomiting 04/23/24 oxycodone 5 mg tablet 5 mg PO TID PRN PRN pain 04/23/24 pravastatin 20 mg tablet 20 mg PO QPM hld 04/23/24 Physical Exam Narrative GENERAL: cooperative HEENT: Atraumatic; normocephalic EYES; Anicteric, Normal Conjunctiva NECK; supple, normal thyroid, RESPIRATORY: Diminished to auscultation CARDIOVASCULAR: Regular S1 S2, GI: soft, normoactive bowel sounds, RUQ tenderness : No Renal angle tenderness; EXTREMITIES: No edema, no clubbing, MUSCULOSKELETAL: no muscle wasting NEURO: Awake; no lateralizing signs. SKIN: No Rash PSYCH; Flat affect Weight / BMI Weight Weight: 117.43 kg Body Mass Index (BMI) 45.8 ABG / Lab / Microbiology Data 04/24/24 05:12 04/24/24 05:12 Laboratory: Laboratory Results - last 24 hr 04/24/24 03:06: Urine Test Negative 04/24/24 05:12: WBC 6.3, RBC 3.88 L, Hgb 11.5 L, Hct 34.6 L, MCV 89.2, MCH 29.6, MCHC 33.2, RDW Std Deviation 43.2, RDW Coeff of Stevo 13.3, Plt Count 278, MPV 11.0, Immature Gran % (Auto) 0.500, Neut % (Auto) 61.6, Lymph % (Auto) 27.5, Casey % (Auto) 7.5, Eos % (Auto) 1.9, Baso % (Auto) 1.0, Absolute Neuts (auto) 3.9, Absolute Lymphs (auto) 1.73, Nucleated RBC % 0, Sodium 139, Potassium 3.7, Chloride 108 H, Carbon Dioxide 23.0, Anion Gap 8, BUN 9, Creatinine 0.46 L, Estim Creat Clear Calc 199.23, Est GFR (MDRD) Af Amer 193, Est GFR (MDRD) Non-Af 160, BUN/Creatinine Ratio 19.7, Glucose 87, Calcium 8.2 L, Total Bilirubin 2.70 H, AST 231 H, ALT 404 H, Alkaline Phosphatase 165 H, Total Protein 6.2 L, Albumin 3.1 L, Globulin 3.1, Albumin/Globulin Ratio 1.0 Radiography Diagnostic Testing: Radiology Impression Endo Retro Cholangiopancreatogram 04/24/24 11:27 IMPRESSION: 5 fluoroscopic images for ERCP are submitted to the medical record. Refer to the operative notes for complete details. Electronically Signed: Tomasz Watkins DO at 16:30 EDT , D/C Instructions Discharge Diet: Soft diet and No Fluid Restriction Call your doctor if you observe: Fever of 101 or Higher, Shortness of breath, Fainting spells and Chest pain Meaningful Use Info Meaningful Use Meaningful Use Diagnoses (Choose all that apply): None applicable Ischemic Stroke Statin Dosing Therapy Reference: STATIN DOSE THERAPY REFERENCE: * Patients > 75 years receive moderate or high dose statin therapy. * Patients 75 years or YOUNGER should receive HIGH intensity statin dose unless contraindicated. You will be required to document reason for non-treatment if statin daily dose does not meet guidelines. HIGH DOSE STATIN THERAPY DAILY Atorvastatin > than or = to 40 mg Rosuvastatin > than or = to 20 mg Amlodipine + Atorvastatin > than or = to 2.5/40 mg Ezetimibe + Simvastatin 10/80 mg Simvastatin 80mg Discharge Plan Admission Admit Date/Time: 04/23/24 21:50 Primary Reason for Your Visit: CHOLECYSTITIS Attending Provider: Antoine Foss Primary Care Provider: Jasson Harvey Consulting Providers: France Milton; Vineet Jean Discharge Orders/Prescriptions Prescriptions: No Action metronidazole 500 mg tablet 500 mg PO TID ciprofloxacin HCl 500 mg tablet 500 mg PO BID diltiazem HCl 120 mg capsule,extended release 24hr 120 mg PO DAILY ondansetron 4 mg tablet,disintegrating 4 mg PO Q6H PRN PRN (Reason: nausea and vomiting) losartan 100 mg tablet 100 mg PO DAILY cholecalciferol (vitamin D3) [Vitamin D3] 125 mcg (5,000 unit) tablet 125 mcg PO DAILY oxycodone 5 mg tablet 5 mg PO TID PRN PRN (Reason: pain) pravastatin 20 mg tablet 20 mg PO QPM Referrals / Follow Up: Jasson Harvey MD [Primary Care Provider] - Within 1 Week Disposition Disposition (needs filled in before D/C Order can be placed): Home, Self Care Charges/Coding Visit Charges Inpatient E&M: 15319 Disch Hosp >30min
== END 2024-04-24 18:31 | disposition home or self-care (01) ==
PROVIDERS: Internal Medicine Gastroenterology; PCP Internal Medicine; Visit Provider Internal Medicine
PROC: (CPT 43260; principal; 2024-04-24 11:30)
DX: K80.63 Calculus of gallbladder and bile duct with acute cholecystitis with obstruction (principal); E66.01 Morbid (severe) obesity due to excess calories; Z68.42 Body mass index [BMI] 45.0-49.9, adult; E78.5 Hyperlipidemia, unspecified; R74.8 Abnormal levels of other serum enzymes; I10 Essential (primary) hypertension; Z79.899 Other long term (current) drug therapy; R17 Unspecified jaundice
CPT/HCPCS: 43274; 43264; 36415; 74330; 76000; 80053; 81025; 85025; 93005; 96361; 96365; 96366; 96375; 99221; J7030; J7040; J7120; G0378; J0696; J2405